=== PATIENT | female | born 1990 | race Caucasian/White ===

== ENCOUNTER 2018-03-07 18:29 | Emergency (ER) | payer OTHER ==
[~2018-03-07] VITALS: Ht 152.4 cm; Wt 90.9 kg
[2018-03-07 18:32] VITALS: Ht 152.4 cm; Wt 90.9 kg
[2018-03-07] MEDS ORDERED: FEXMID7.5 MG (18:34)
[2018-03-07] MEDS ORDERED: CELEXA20 MG PO (18:34)
[2018-03-07] MEDS ORDERED: ASPIRIN EC81 M1 PO (18:35)
[2018-03-07] MEDS ORDERED: EC-NAPROSYN500 MG PO (21:34)
[2018-03-07 21:57] VITALS: BP 112/57
== END 2018-03-07 21:58 | disposition home or self-care (01) ==
LOC: D.ER 18:29
DX: S06.0X0A Concussion without loss of consciousness, initial encounter (principal); Y04.2XXA Assault by strike against or bumped into by another person, initial encounter; Y93.89 Activity, other specified; Y92.019 Unspecified place in single-family (private) house as the place of occurrence of the external cause; F17.200 Nicotine dependence, unspecified, uncomplicated